=== PATIENT | male | born 1965 | race Caucasian/White ===

== ENCOUNTER 2022-09-09 10:52 | Day surgery (SDC) | payer OTHER, SELFPAY ==
[2022-08-29 10:14] VITALS: BMI 27.3
--- NOTE | 2022-09-09 09:05 | P.PNAN_ITS ---
Anes - Initial Pre Proc Eval Procedure: Operation Date: 09/09/22 12:30 Proposed Procedures p Screening Colonoscopy - Juvenal Edwards MD Date/Time: 09/09/22 09:05 Surgeon: Juvenal Edwards MD Pre Op Diagnosis: Neoplam Screening Patient Data Age: 57 Gender: M Height: 1.68 m Weight: 77 kg Allergies Allergy/AdvReac Type Severity Reaction Status Date / Time No Known Allergies Allergy Verified 09/09/22 11:07 Home Medications Medication Instructions Recorded Confirmed Type pravastatin 40 mg tablet 40 mg PO QHS #90 tabs 08/20/22 09/09/22 Rx Patient hx anesthesia problems: none Family hx anesthesia problems: none Results Review: All pre-operative results and documents have been reviewed as part of the pre- operative evaluation. PMFSH Past Medical History Medical History Hyperlipidemia Social History Social History Smoking status: Never smoker Alcohol intake: current Substance use type: does not use Living arrangements: with family Spiritual care concerns: No Anes - Eval Final PreProcedure Day of Procedure 09/09/22 09:05 Patient weight: overweight Heart: regular rate and rhythm Lungs: clear to auscultation Airway: Mallampati scale class II Neurological: alert and oriented Last oral intake: >/= 8 hours ASA classification: II Emergent: no Anesthetic plan: proceed Anesthesia type and monitoring: general GIVS and standard monitoring Results Review: All pre-operative results and documents have been reviewed as part of the pre- operative evaluation. Informed Consent: The patient's anesthetic plan and its attendant risks and benefits were discussed with the patient/family/POA. Questions were solicited and answers provided to the satisfaction of the patient/family/POA.
--- NOTE | 2022-09-09 11:07 | PM.HPGS ---
History of Present Illness History of Present Illness Consent: Risks, benefits, and alternatives have been discussed and questions answered. Patient agrees to proceed with procedure. Chief complaint: Neoplam Screening Narrative: Danis Lutz is a 57 year old male referred for colon cancer screening. Review of Systems Review of Systems: All systems reviewed & are unremarkable except as noted in HPI and below PMFSH Past Medical History Medical History Hyperlipidemia Social History Social History Smoking status: Never smoker Alcohol intake: current Substance use type: does not use Living arrangements: with family Spiritual care concerns: No Meds Home Medications and Allergies Home Medications Medication Instructions Recorded Confirmed Type pravastatin 40 mg tablet 40 mg PO QHS #90 tabs 08/20/22 09/09/22 Rx Allergies Allergy/AdvReac Type Severity Reaction Status Date / Time No Known Allergies Allergy Verified 09/09/22 11:07 Exam Resp: Auscultation: clear to auscultation bilaterally Cardio: Rate: regular rate Rhythm: regular rhythm GI: GI Palp: Yes Soft to palpation and No Tenderness to palpation present (GI) Assessment and Plan Assessment and plan (1) Colon cancer screening: Code(s): Z12.11 - Encounter for screening for malignant neoplasm of colon Status: Acute Assessment and Plan: Colonoscopy with possible biopsy or polypectomy or cautery or injection of substances.
[2022-09-09 11:17] VITALS: BP 115/89; PULSE 75; RESP 16; TEMP 36.7; O2SAT 100; BMI 28.0
[2022-09-09] MEDS: LACTATED RINGERS 1,000 ML 150 ML IV CONT (11:29)
[2022-09-09 12:02] VITALS: BP 93/46; PULSE 79; RESP 18; O2SAT 96
[2022-09-09 12:12] VITALS: BP 100/72; PULSE 72; RESP 16; O2SAT 98
[2022-09-09 12:22] VITALS: BP 106/75; PULSE 63; RESP 17; O2SAT 97
--- NOTE | 2022-09-09 13:34 | WPDANESPN ---
Anes - Prog Note Post-Op Date/Time: 09/09/22 13:34 Cardiovascular status: normal Respiratory status: normal Airway patency: baseline Mental status: baseline Post-Op hydration status: normal Vital Signs: Last Vital Signs Temp 36.7 C 09/09/22 11:17 Pulse 63 09/09/22 12:22 Resp 17 09/09/22 12:22 BP 106/75 09/09/22 12:22 Pulse Ox 97 09/09/22 12:22 O2 Del Method Room Air 09/09/22 12:22 Pain Score (VAS): 0 I/O: Intake & Output 09/08/22 09/09/22 09/09/22 23:59 07:59 15:59 Intake Total 300 Balance 300 Post-procedural complaints: none Patient Feedback: Patient satisfied with anesthetic care. Other Findings: Patient vital signs back to baseline. Patient denies nausea and vomiting. Patient's pain under control. Patient OK for discharge.
== END 2022-09-09 12:42 | disposition home or self-care (01) ==
PROVIDERS: PCP Internal Medicine; Visit Provider Internal Medicine Gastroenterology
PROC: 0DJD8ZZ Inspection of Lower Intestinal Tract, Via Natural or Artificial Opening Endoscopic (ICD-10-PCS; CPT 45378; principal; 2022-09-09 12:30)
DX: Z12.11 Encounter for screening for malignant neoplasm of colon (principal)
CPT/HCPCS: 45378